=== PATIENT | female | born 1990 | race Caucasian/White ===

== ENCOUNTER 2020-02-20 17:11 | Emergency (ER) | payer OTHER, SELFPAY ==
--- NOTE | 2020-02-20 17:46 | ED_ITS ---
HPI - General Adult General: Chief complaint: General Medical Stated complaint: needle stick Time Seen by Provider: 02/20/20 17:41 History of Present Illness: HPI narrative: Evelyn is a 29-year-old female who comes in with a complaint of needlestick injury to the left index finger. 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 She denies any other complaints. Associated symptoms: Deny chest pain, dyspnea, headache(s), nausea, rash, palpitations, syncope or vomiting Review of Systems Const: Denies: fever(s) Eyes: Denies: change in vision ENMT: Denies: throat pain Card: Denies: chest pain, palpitations, syncope, pre-syncope or dyspnea on exertion Resp: Denies: dyspnea, productive cough or non-productive cough GI: Denies: abdominal pain, nausea, vomiting or diarrhea : Denies: flank pain, dysuria, urinary frequency or urinary urgency Musc: Denies: neck pain, back pain or extremity pain Skin/Breast: Denies: rash or pruritus Neuro: Denies: headache(s), numbness in extremities, weakness in extremities or dizziness Saulo/Lymph: Denies: easy bruising or easy bleeding All/Imm: Denies: urticaria PFSH ED PFSH: Medical History Chronic migraine without aura Endometriosis determined by laparoscopy Pelvic pain Surgical History H/O section 2008, 2012, 2013,2016 H/O dilation and curettage (~2012) Blighted ovum H/O laparoscopy (05/2019) endometriosis and adhesion noted at time of surgery--[place] H/O tubal ligation (~2016) [place] History of cholecystectomy (~03/2017) [place]-- gallstones noted Family History Grandmother Cancer Paternal Grandmother-uterine cancer Maternal Grandmother-breast cancer, lung cancer Denies family history of Diabetes Hyperlipidemia Hypertension Social History Smoking and tobacco status: never smoked Alcohol intake: current Alcohol intake frequency: holidays/special occasions only Alcohol type: beer, wine and hard liquor Physical Exam Const: COMMON NORMALS: no acute distress, patient oriented x3, no limitations, healthy appearing and well nourished GENERAL APPEARANCE: cooperative, well kempt and well developed HENMT: COMMON NORMALS: normocephalic, atraumatic, external ears normal, EAC's normal and Normal external nose present HEAD & SCALP: normal to inspection, normocephalic and atraumatic FACE & SINUS: normal facial exam and face symmetric NOSE: Normal external nose present and Normal nares present EXTERNAL EAR: Yes external ears normal EXTERNAL AUDITORY CANAL: EAC's normal MOUTH: Normal oral and palatal mucosa present, lip normal and tongue normal Eye: COMMON NORMALS: Equal, round and reactive pupils present and conjunctivae normal GENERAL EYE: appearance normal, both eyes and all related structures ALIGNMENT: Yes alignment normal PERIORBITAL: periorbital findings normal EYELID: eyelids normal CONJUNCTIVA: Yes conjunctivae normal SCLERA: sclerae normal PUPIL: Yes Equal, round and reactive pupils present Neck/C-Spine: COMMON NORMALS: full ROM, no lymphadenopathy, supple, no meningeal signs and no JVD GENERAL: Yes normal visual inspection and Yes trachea midline Chest: COMMONS NORMALS: normal inspection of the chest and normal palpation of entire chest wall Resp: COMMON NORMALS: normal respiratory effort, No retractions and No use of accessory muscles EFFORT & INSPECTION: Yes able to speak in complete sentences and Yes symmetric chest movement AUSCULTATION: no crackles, no rales, no rhonchi and no wheezes Cardio: COMMON NORMALS: no JVD, regular rate, regular rhythm, S1 normal heart sound present and S2 normal heart sound present RATE: regular rate RHYTHM: regular rhythm HEART SOUNDS: S1 normal heart sound present, S2 normal heart sound present, no click, no gallops, no murmurs, no rubs and abnormal split S2 GI: COMMON NORMALS: Soft to palpation and No hepatosplenomegaly present PALPATION: Yes Soft to palpation, No Tenderness to palpation present (GI), No Guarding due to palpation present (GI), No Rigid due to palpation, Yes No hepatosplenomegaly present, No Hernia present, No Palpable mass present and No Pulsatile mass present : COMMON NORMALS: Yes no CVA tenderness BLADDER/KIDNEY EXAM: Yes no CVA tenderness EXTERNAL FEMALE EXAM: No Hernia present Back/Pelvis: COMMON NORMALS: no CVA tenderness, thoracic and lumbar spine normal to inspection, no thoracic nor lumbar tenderness and thoraco-lumbar ROM normal Extremity: COMMON NORMALS: normal to inspection, full ROM, capillary refill normal, no joint enlargement, no clubbing, cyanosis or edema and no calf tenderness Neuro: COMMON NORMALS: patient oriented x3, CN's II-XII intact bilaterally, moves all extremities, no focal motor deficits and no sensory deficits noted MENINGEAL SIGNS: Yes no meningeal signs SPEECH: speech normal Psych: COMMON NORMALS: mental status grossly normal, Normal thought process present, cooperative, normal affect, speech normal and activity/motor behavior normal APPEARANCE: Yes well kempt SPEECH: Yes normal speech THOUGHT PROCESS: Normal thought process present Skin: COMMON NORMALS: no rashes or lesions noted, turgor normal, no jaundice, no petechiae and no mottling NARRATIVE SKIN EXAM: Small single puncture wound to the lower aspect of the left index finger. GENERAL SKIN EXAM: no rashes or lesions noted and turgor normal MDM - General Adult MDM Narrative: Medical decision making narrative: Patient medially cleaned and cleansed the area. The patient agreed to have his hepatitis and HIV panels drawn for source sampling. Evelyn Melvin the patient also agrees to this. We will follow-up on the labs will become available. Discharge Plan Discharge Patient Disposition: Home, Self-Care Clinical Impression: Needlestick injury accident Condition: Stable Prescriptions: No Action Mirena 20 mcg/24 hours (5 yrs) 52 mg intrauterine device INTRAUTERI RF: 0 ibuprofen 800 mg tablet 800 mg PO Q8H Qty: 90 RF: 3 Discharge Orders: Discharge Order (Routine); Ordered 02/20/20 Ordered By: Consuelo Fermin Referrals: Latoya Cancino MD [Primary Care Provider] - 1-3 days Discharge Diet: Usual diet Discharge Activity: Resume usual activity Patient Instructions: Blood/Body Fluid Exposure - Occupational, Postexposure Prophylaxis (ED) Activity Restrictions/Additional Instructions: Please return to the ER immediately for any of the signs or symptoms listed on your discharge instruction sheets, worsening/changing of your symptoms, you are not getting better as quickly as expected, or for ANY other cause or concerns. If you change your mind about wanting postexposure prophylaxis please return to the ER anytime for recheck and further evaluation and treatment. Coding Level of Care Code ED Calender Let Off Operator for Chg Fwd Exam Comprehensive
[2020-02-20 17:49] VITALS: BMI 35.4
[2020-02-20 17:58] VITALS: BP 124/84; PULSE 81; RESP 18; TEMP 36.7; O2SAT 98
[2020-02-20 19:02] LABS: Basophils # 0.1 10^3/uL (0.0-0.1); Basophils % 0.8 %; Eosinophils # 0.3 10^3/uL (0.0-0.8); Eosinophils % 2.7 %; Hematocrit 38.9 % (37.0-47.0); Lymphocytes # 3.7 10^3/uL (0.8-4.8); Lymphocytes % 33.1 %; Mean Corpuscular HGB Conc 30.8 g/dL (30.0-36.0); Mean Corpuscular Hemoglobin 24.8 pg (28.0-34.0); Mean Corpuscular Volume 80.5 fL (81-99); Mean Platelet Volume 10.8 fL (7.4-10.4); Monocytes # 0.6 10^3/uL (0.2-0.9); Monocytes % 5.4 %; Neutrophils # 6.42 10^3/uL (1.8-7.7); Neutrophils % 57.7 %; Nucleated Red Blood Cells % 0 %; Platelet Count 385 10^3/cmm (130-400); Red Blood Count 4.83 10^6/uL (4.1-5.3); Red Cell Distribution Width 14.4 % (12.1-15.1); White Blood Count 11.1 10^3/uL (4.0-10.0)
[2020-02-20 19:18] LABS: Alanine Aminotransferase 21 U/L (0-33); Alkaline Phosphatase 84 IU/L (35-105); Anion Gap 15.6 (5-19); Aspartate Amino Transferase 21 U/L (0-32); Blood Urea Nitrogen 16 mg/dL (6-20); Calcium 9.8 mg/dL (8.5-10.5); Carbon Dioxide 26 mmol/L (22-29); Chloride 99 mmol/L (98-107); Globulin 2.8 g/dL (1.3-4.6); Glomerular Filtration Rate 98.3 mL/min (90-130); Glucose 92 mg/dL (65-115); Osmolality Calculated 280 mOsm/kg (285-295); Potassium 3.6 mmol/L (3.5-5.1); Sodium 137 mmol/L (136-145); Total Bilirubin 0.2 mg/dL (0.15-1.2); Total Protein 7.8 g/dL (6.6-8.7)
[2020-02-20 19:26] LABS: HCG, Serum Qual Negative (Negative)
[2020-02-20 19:48] LABS: HIV 1 & 2 Antibody Non-Reactive (Non-Reactiv); HIV 1 & 2 Antigen Non-Reactive (Non-Reactiv)
[2020-02-20 19:53] LABS: Hepatitis A Antibody IgM Non-Reactive (Nonreactive); Hepatitis B Core AB, Total Non-Reactive (Nonreactive); Hepatitis B Surface AB 227.4 (0-8.5); Hepatitis B Surface Antigen Non-Reactive (Nonreactive); Hepatitis C Virus Antibody Non-Reactive (Nonreactive)
== END 2020-02-20 18:11 | disposition home or self-care (01) ==
PROVIDERS: Emergency Provider Emergency Medicine; PCP Family Medicine
DX: S61.231A Puncture wound without foreign body of left index finger without damage to nail, initial encounter (principal); W46.0XXA Contact with hypodermic needle, initial encounter; Y92.238 Other place in hospital as the place of occurrence of the external cause; Y99.0 Civilian activity done for income or pay
CPT/HCPCS: 12345; 36415; 80053; 84703; 85025; 86705; 86706; 86709; 86803; 87340; 87806; 99281; 99282

== ENCOUNTER → 2020-11-18 10:01 | Outpatient (BNVA) | payer OTHER, MEDICAID, SELFPAY | PROVIDERS: Visit Provider Obstetrics & Gynecology | DX: N80.9 Endometriosis, unspecified (principal); Z01.812 Encounter for preprocedural laboratory examination | CPT/HCPCS: 87635 ==

== ENCOUNTER 2020-11-20 14:05 | Inpatient (IN) | payer OTHER, SELFPAY ==
[2020-11-18 11:35] VITALS: BMI 37.1
--- NOTE | 2020-11-18 12:02 | P.ANESASSM_ITS ---
Pre-Anesthetic Assessment Pre-Anesthetic Assessment: Height/Weight: Height 1.57 m Weight 92.079 kg Preop Diagnosis: Chronic pelvic pain, adenomyosis, endometriosis Proposed Procedure: Operation Date: 11/20/20 07:00 Proposed Procedures p Total Abdominal Hysterectomy 98662 N10.2 N80.9(Not Applicable) - Pineda Baum MD Was Beta Festus taken within 24 hours: N/A Was Clonidine taken within 24 hours: N/A Social: Social History: No alcohol and No tobacco Exam: Pre-Anes Outpt Exam: alert and oriented x 3 Airway: Submandibular: WNL Cervical ROM: WNL MP: 1 History/ROS: No significant history except as noted Pulmonary: Pulmonary: None reported CV/HEM: CV/HEM: None reported : : None reported Hepatic: Hepatic: None reported GI: GI: None reported Metabolic: Metabolic: None reported Musc/skel: Musc/skel: None reported Neuropsych: Neuropsych: None reported Anesthetic Plan: ASA status: 2 Anesthesia: General Other: Patient needs TIVA and emesis prophylaxis. PFSH Anesthesia PFSH: Medical History Chronic migraine without aura Endometriosis determined by laparoscopy Pelvic pain Surgical History H/O section 2008, 2012, 2013,2016 H/O dilation and curettage (~2012) Blighted ovum H/O laparoscopy (05/2019) endometriosis and adhesion noted at time of surgery--[place] H/O tubal ligation (~2016) [place] History of cholecystectomy (~03/2017) [place]-- gallstones noted Family History Grandmother Cancer Paternal Grandmother-uterine cancer Maternal Grandmother-breast cancer, lung cancer Denies family history of Diabetes Hyperlipidemia Hypertension Social History (Updated 11/18/20 @ 08:41 by Lia Castaneda RN) Smoking and tobacco status: current every day smoker e-cigarettes E-Cigarette Details: vaporizer device and with nicotine E-cig/vape details: 1-2 times every few days Alcohol intake: current Alcohol intake frequency: holidays/special occasions only Alcohol type: beer, wine and hard liquor Female Reproductive History: Date of last menstrual period: 10/20/20 Data Anesthesia CBC & Chem 7: 11/18/20 11:45 Cardiac Studies: No Data to Display
[2020-11-18 12:11] LABS: Basophils # 0.1 10^3/uL (0.0-0.1); Basophils % 0.9 %; Eosinophils # 0.1 10^3/uL (0.0-0.8); Eosinophils % 1.1 %; Hematocrit 38.2 % (37.0-47.0); Hemoglobin 11.8 g/dL (11.5-15.3); Lymphocytes # 2.3 10^3/uL (0.8-4.8); Lymphocytes % 30.3 %; Mean Corpuscular HGB Conc 30.9 g/dL (30.0-36.0); Mean Corpuscular Hemoglobin 25.5 pg (28.0-34.0); Mean Corpuscular Volume 82.5 fL (81-99); Mean Platelet Volume 10.6 fL (7.4-10.4); Monocytes # 0.4 10^3/uL (0.2-0.9); Monocytes % 5.9 %; Neutrophils # 4.57 10^3/uL (1.8-7.7); Neutrophils % 61.5 %; Nucleated Red Blood Cells % 0 %; Platelet Count 355 10^3/cmm (130-400); Red Blood Count 4.63 10^6/uL (4.1-5.3); Red Cell Distribution Width 13.7 % (12.1-15.1); White Blood Count 7.4 10^3/uL (4.0-10.0)
[2020-11-18 12:23] LABS: Alanine Aminotransferase 18 U/L (0-33); Albumin Level 4.2 g/dL (3.5-5.2); Alkaline Phosphatase 78 IU/L (35-105); Aspartate Amino Transferase 14 U/L (0-32); Blood Urea Nitrogen 10 mg/dL (6-20); Calcium 8.8 mg/dL (8.5-10.5); Carbon Dioxide 26 mmol/L (22-29); Chloride 104 mmol/L (98-107); Globulin 2.4 g/dL (1.3-4.6); Glomerular Filtration Rate 97.6 mL/min (90-130); Glucose 100 mg/dL (65-115); Osmolality Calculated 285 mOsm/kg (285-295); Sodium 138 mmol/L (136-145); Total Bilirubin 0.2 mg/dL (0.15-1.2); Total Protein 6.6 g/dL (6.6-8.7)
[2020-11-18 13:00] LABS: Add Urine Microscopic? YES; Bilirubin Urine Neg (Negative); Blood Urine Neg (Negative); Glucose Urine UA Norm (Normal); Ketones Urine Negative (Negative); Leukocyte Esterase Urine Negative (Negative); Nitrate Urine Negative (Negative); Protein Urine Neg (Negative); Specific Gravity, Urine 1.015 (1.005-1.030); Sulfosalicylic Acid Urine Negative (Negative); Urine Appearance Cloudy (CLEAR); Urine Color Yellow (Yellow); Urobilinogen Urine Norm (Negative); pH Urine 9 (5-7)
[2020-11-18 13:10] LABS: Add Urine Culture? No; RBC Urine RARE /hpf (0-2); Squamous Epithelial Cell Urine 0-4 /hpf (0-5); WBC Urine RARE /hpf (0-5)
[2020-11-18 13:13] LABS: Amorphous Sediment Urine 1+ /hpf; Bacteria Urine 2+ /hpf
[2020-11-18 13:29] LABS: OR HCG Qualitative Urine Negative (Negative)
[2020-11-20] VITALS (28 sets, daily range): BP systolic 82–131; BP diastolic 42–87; PULSE 63–84; RESP 17–24; TEMP 36.2–37.1; O2SAT 95–100
--- NOTE | 2020-11-20 10:48 | W.PM.OPSUD ---
Surgery/Procedure H&P Update DATE OF PROCEDURE: November 20, 2020 DATE H&P PERFORMED: 11/18/20 H&P UPDATE INFORMATION: I have reviewed H&P completed within last 30 days, I have examined patient prior to procedure and No changes to prior documentation PREOP DIAGNOSIS: Chronic pelvic pain, adenomyosis, endometriosis PLANNED PROCEDURE: Operation Date: 11/20/20 11:50 Proposed Procedures p Total Abdominal Hysterectomy 54254 N10.2 N80.9(Not Applicable) - Pineda Baum MD
[2020-11-20] MEDS: scopolamine 1.5 Patch 1 PATCH TRANSDERMA (10:49)
[2020-11-20] MEDS: sodium chloride 0.9% 500 ML IV (11:10)
--- NOTE | 2020-11-20 11:19 | P.ANESUD_ITS ---
Pre-Anesthetic Update Pre-Anesthetic Assessment: Date of Surgery/Procedure: 11/20/20 Preop Joceline gnosis: Chronic pelvic pain, adenomyosis, endometriosis Proposed Procedure: Operation Date: 11/20/20 11:50 Proposed Procedures p Total Abdominal Hysterectomy 42991 N10.2 N80.9(Not Applicable) - Pineda Baum MD Any changes to Pre-Anesthetic Assessment?: No Last Intake: Intake Last Liquid Date 11/19/20 Last Liquid Time 21:00 Last Solid Date 11/19/20 Last Solid Time 21:00 Labs Last 48hrs: Laboratory Results - last 48 hr 11/18/20 11/18/20 11/18/20 11:45 11:45 11:45 WBC 7.4 RBC 4.63 Hgb 11.8 Hct 38.2 MCV 82.5 MCH 25.5 L MCHC 30.9 RDW 13.7 Plt Count 355 MPV 10.6 H Neut % (Auto) 61.5 Lymph % (Auto) 30.3 Gordon % (Auto) 5.9 Eos % (Auto) 1.1 Baso % (Auto) 0.9 Neut # (Auto) 4.57 Lymph # (Auto) 2.3 Gordon # (Auto) 0.4 Eos # (Auto) 0.1 Baso # (Auto) 0.1 Nucleated RBC % (a uto) 0 Nucleated RBCs # 0.0 Sodium 138 Potassium 4.0 Chloride 104 Carbon Dioxide 26 Anion Gap 12.0 BUN 10 Creatinine 0.7 GFR Calculation 97.6 Glucose 100 Calculated Osmolal ity 285 Calcium 8.8 Total Bilirubin 0.2 AST 14 ALT 18 Alkaline Phosphata se 78 Total Protein 6.6 Albumin 4.2 Globulin 2.4 Urine Color Urine Appearance Urine pH Ur Specific Gravit y Urine Protein Urine Glucose (UA) Urine Ketones Urine Blood Urine Nitrate Urine Bilirubin Prot Sulfosalicyli c Acd Urine Urobilinogen Ur Leukocyte Alina ase Urine RBC Urine WBC Ur Squamous Epith Cells Amorphous Sediment Urine Bacteria Urine HCG, Qual Blood Type O Positive Rho(D) Type Positive / 4+ Antibody Screen Negative 11/18/20 11/18/20 12:00 12:00 WBC RBC Hgb Hct MCV MCH MCHC RDW Plt Count MPV Neut % (Auto) Lymph % (Auto) Gordon % (Auto) Eos % (Auto) Baso % (Auto) Neut # (Auto) Lymph # (Auto) Gordon # (Auto) Eos # (Auto) Baso # (Auto) Nucleated RBC % (a uto) Nucleated RBCs # Sodium Potassium Chloride Carbon Dioxide Anion Gap BUN Creatinine GFR Calculation Glucose Calculated Osmolal ity Calcium Total Bilirubin AST ALT Alkaline Phosphata se Total Protein Albumin Globulin Urine Color Yellow Urine Appearance Cloudy Urine pH 9 H Ur Specific Gravit y 1.015 Urine Protein Neg Urine Glucose (UA) Norm Urine Ketones Negative Urine Blood Neg Urine Nitrate Negative Urine Bilirubin Neg Prot Sulfosalicyli c Acd Negative Urine Urobilinogen Norm Ur Leukocyte Alina ase Negative Urine RBC Rare Urine WBC Rare Ur Squamous Epith Cells 0-4 H Amorphous Sediment 1+ Urine Bacteria 2+ H Urine HCG, Qual Negative Blood Type Rho(D) Type Antibody Screen Vitals: Temperature 97.1 F L 11/20/20 10:34 Temperature Source Temporal Artery S can 11/20/20 10:34 Pulse Rate 74 11/20/20 10:34 Pulse Rhythm 11/20/20 10:34 Pulse Strength 3+ Normal 11/20/20 10:34 Respiratory Rate 18 11/20/20 10:34 Blood Pressure 131/87 11/20/20 10:34 Blood Pressure [place] n 101 11/20/20 10:34 Pulse Oximetry 96 11/20/20 10:34 Oxygen Delivery Me thod 11/20/20 10:34 Exam: Pre-Anes Outpt Exam: alert, oriented x 3, clear to auscultation bilaterally and regular rate & rhythm Cardiac Studies: No Data to Display
[2020-11-20] MEDS: sodium chloride 0.9% 1,000 ML 30 ML IV (12:10)
[2020-11-20] MEDS: ceFOXitin 2,000 MG in sodium chloride 0.9% (plus) 50 ML 100 MG IV (12:15)
--- NOTE | 2020-11-20 13:21 | PC.NURSE ---
4490 SPOKE WITH PATIENT'S JERROD AND GAVE HIM AN UPDATE.
--- NOTE | 2020-11-20 14:30 | P.OP_ITS ---
Operative Report Date of procedure: November 20, 2020 Pre-op Diagnosis: Chronic pelvic pain, adenomyosis, endometriosis Post-op diagnosis: same Procedure Done: Total abdominal hysterectomy Specimens removed/disposition: Uterus Surgeon: Pineda Baum MD Anesthesia: General Estimated blood loss (mL): 300 IV fluids (mL): 1,400 Urine output (mL): 150 Complications: None Findings: Extensive bladder adhesions, normal size uterus, normal ovaries Condition: stable Disposition: PACU Procedure: The patient was taken to the operating room, and after adequate level of general anesthesia was achieved, the patient was placed in the Trendelenburg position, prepped and draped in the usual sterile fashion. Subsequently, a Pfannenstiel incision was made and the incision was taken down to the fascia. The fascia was opened up sharply. The fascia was extended to the length of the incision using the Santillan scissors. At this time, the rectus muscles were dissected from the fascia superiorly and inferiorly to the symphysis pubis. The midline rectus muscles were opened sharply and extended superiorly and inferiorly. The peritoneum was visualized, grasped, opened sharply, and extended superiorly and inferiorly towards the bladder. The abdominal contents were packed superiorly away from the operative site using the lap packs. At this time, the pelvic organs were noted. The inferior and superior blades were placed in place on the Martin self-retaining retractor. Bowel was packed away from the operative site. The fundus of the uterus was then grasped with a triple-tooth tenaculum and retracted out of the pelvic cavity into the abdominal site. At this point, Gerri clamps were placed in both right and left adnexal regions. Subsequently, using the Enseal device, the round ligaments were grasped, cauterized, and dissected. The bladder flap was then formed and the bladder flap was pushed away down anteriorly over the lower uterine segment, pushed away from the operative site on both the right and left sides. Subsequently, the posterior leaf of the broad ligament was opened sharply and the Enseal instrument was then placed below the level of the ovary in both the right and left side, care being taken not to damage bowel or uterus and the infundibulopelvic ligament was then grasped, cauterized, and again dissected. Further dissection of the broad ligament was carried down posteriorly towards the uterine vessels. The bladder was pushed inferiorly down towards the vagina. Subsequently, the uterine vessels were then grasped again with the Enseal machine, cauterized, and dissected. The cardinal ligaments were further grasped, dissected, and suture ligated, again with the Enseal machine. At that point, the Enseal machine instrument was stopped and straight Zeppelin clamps were used on the cardinal ligaments down towards the uterosacral ligaments. The cardinal ligaments were grasped, dissected with a scalpel and then ligated with transfixion sutures with #1 Vicryl suture down to the uterosacral ligaments. The uterosacral ligaments were grasped, dissected, and suture ligated again with #1 Vicryl suture and transfixion sutures. At that time, the bladder had been pushed over the vagina and at this time right-angle Zeppelin clamps were placed on the vagina at the level of the cervix, and using the Susie scissors, the cervix was dissected away from the vagina. At this time, the vaginal cuff was then closed using interrupted sutures of #1 Vicryl suture from the midline to each lateral corner. After the good hemostasis had been achieved in the vaginal cuff, both the right and left adnexa was visualized and no more bleeding was noted. The cuff was intact with no bleeding noted. The bladder was visualized and no bleeding was noted. Seprafilm was then placed over the vaginal cuff. The Martin self- retaining retractor was removed as well as the anterior and inferior blades. The lap packs were removed, and at this time, general closure of the abdomen was carried out. The peritoneum was closed with a 2-0 Vicryl suture and continuous running suture. The fascia was closed using a #1 Vicryl suture from each corner to the midline. Subcutaneous tissue was cauterized. No bleeding was noted. The subcutaneous tissue was then reapproximated using plain sutures and interrupted sutures, and the skin was closed using The Insorb subcuticular absorbable tangela. The incision site was infiltrated with Exparel for pain management. The patient tolerated the procedure well and was transferred to the recovery room in excellent condition. The patient returned to the floor for recovery.
--- NOTE | 2020-11-20 14:31 | PC.NURSE ---
1427 Spoke with patient's to inform him of completion of surgery. Dr Baum spoke with [place] as well.
[2020-11-20] MEDS: meperidine 50 mg/mL INJ 12.5 MG IVP ×2 (14:48→15:06)
--- NOTE | 2020-11-20 14:54 | ANE.PACU2 ---
Inpatient post-anesthesia follow up: Airway intact: Yes Vital signs: Temperature 97.1 F Pulse Rate 74 Respiratory Rate 18 Blood Pressure 131/87 Pulse Oximetry 95 Oxygen Delivery Me thod Room Air Oxygen Flow Rate Fraction of Inspir ed Oxygen Hydration adequate: Yes Nausea and vomiting: No Pain level: 3 Mental status: Baseline
--- NOTE | 2020-11-20 15:11 | SUR.PHASEI ---
1426 PT TO PACU SHIVERING ORAL AIRWAY IN PLACE PT SX WITH YANKER FOR LOUD RESP LARGE AMT OF CLEAR PINK TINGED SPUTUM OBTAINED PT AWAKES ORAL AIRWAY OUT PT YUMIKO OUT WITH PAIN MOANS RESTLESS SEE PAIN MED GIVEN BY SKIN THERAPIST . VSS ABD LARGE SOFT WITH DRESSIN D/I URIARTE TO DD WITH BLUE URINE NOTED AND STATLOCK TO RT THIGH. BILAT SCS ON . 1448 WARM BLANKETS TO PT X 4 SEE MED GIVEN FOR SHIVERING AND PAIN 1506 UNCHANGED SEE MED REPEATED PT SHIVEIRING AND C/O OF PAIN , BP LOW AT TIMES PT ENCOURAGED NOT TO MOVE WHILE BP IS TAKING AND BP READS MORE NORMAL. IV W/O PER ANESTHESIA REQUEST
[2020-11-20] MEDS: sodium chloride 0.9% 500 ML 999 ML IV (15:23)
--- NOTE | 2020-11-20 16:00 | SUR.PHASEI ---
1530 PT VERY ALERT C/O OF PAIN REPOSITIONS SELF TO RT SIDE, ABD LARGE SOFT DRESSING D/I DAI PAD D/I NO BLEEDING NOTED URIARTE TO DD WITH DK BLUE URINE TO TUBING AND BAG, IV PATENT AT MODERATE RATE, SEE FLUIDS GIVEN FOR OFF AND ON LOW BP EARLIER. PT BP MAINTAINED WELL ABOVE 95 SYSTOLIC, AND PT ALERT AND TALKATIVE . PT STILL RATES PAIN AT 10 BUT PT MORE RELAXED AND SLEEPS OFF AND ON WITH SNORING RESP, HR MAINTAINED AT 65, NOT ELEVATED, PT VERBALIZED (I DONT DO WELL WITH PAIN, AND PAIN MEDS REALLY DROP MY BLOOD PRESSURE.). 1645 HANDOFF AT BEDISDE WITH NURSE ANDRADE, PT REMAINS ALERT BP STABLE PT MOVES SELF TO BED WITH NO ASSISTANCE. DRESSING REMAINS D/I.
[2020-11-20] MEDS: ketorolac 30 mg/mL INJ IVP ×2 (16:05→21:04)
[2020-11-20] MEDS: HYDROcodone-acetaminophen 5-325 mg Tablet PO (16:05)
[2020-11-20] MEDS: morphine 4 mg/mL SDV 1 mL 1 MG IVP (17:37)
[2020-11-20] MEDS: HYDROmorphone 1 mg/mL INJ 1 mL 0.5 MG IVP ×2 (18:13→21:14)
[2020-11-20] MEDS: docusate sodium 100 mg Capsule PO (18:14)
[2020-11-20] MEDS: dextrose 5%-lactated ringers 1,000 ML 125 ML IV (21:26)
[2020-11-21 01:45] VITALS: BP 99/63; PULSE 68; RESP 18; O2SAT 99
[2020-11-21] MEDS: ketorolac 30 mg/mL INJ IVP ×2 (02:11→09:52)
[2020-11-21] MEDS: HYDROcodone-acetaminophen 5-325 mg Tablet PO ×2 (02:11→19:50)
[2020-11-21 06:00] VITALS: BP 99/55; PULSE 60; RESP 18
[2020-11-21 06:18] LABS: Hematocrit 30.4 % (37.0-47.0); Hemoglobin 9.8 g/dL (11.5-15.3); Mean Corpuscular HGB Conc 32.2 g/dL (30.0-36.0); Mean Corpuscular Hemoglobin 26.5 pg (28.0-34.0); Mean Corpuscular Volume 82.2 fL (81-99); Mean Platelet Volume 10.9 fL (7.4-10.4); Platelet Count 307 10^3/cmm (130-400); Red Cell Distribution Width 13.3 % (12.1-15.1); White Blood Count 12.2 10^3/uL (4.0-10.0)
[2020-11-21 07:39] VITALS: RESP 18; O2SAT 97
[2020-11-21] MEDS: HYDROmorphone 1 mg/mL INJ 1 mL 0.5 MG IVP (07:39)
--- NOTE | 2020-11-21 09:36 | P.PN_ITS ---
Subjective Subjective: Interval history: 30-year-old female status post total abdominal hysterectomy postoperative day 1. Refers doing better than yesterday with pain. Eating well Vitals/I&O/Wt Last Vital Signs Temp 98.8 F 11/20/20 15:50 Pulse 60 11/21/20 06:00 Resp 18 11/21/20 07:39 BP 99/55 11/21/20 06:00 Pulse Ox 97 11/21/20 07:39 11/20/20 11/21/20 11/21/20 22:59 06:59 14:59 Intake Total 1180 / 3330 1000 / 4330 Output Total 900 / 1650 2150 / 3800 500 / 500 Balance 280 / 1680 -1150 / 530 -500 / -500 Physical Exam Narrative: EXAM NARRATIVE: GA: Alert and oriented ?3. HEENT: WNL. Heart: Regular rate and rhythm. Lungs: Clear to auscultation bilaterally. Abdomen: Bowel sounds present, nontender, minimal tenderness, incision clean and dry, no redness, pain or edema. 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 Extremities: No edema, no cyanosis, no calves pain. Urinary Catheter Management^: F: Cath Placed During This Visit: yes, but has since been removed by the nurse Reason for Continuing Indwelling Catheter: Decision to DC Catheter Urinary Catheter Date of Insertion: 11/20/20 Urinary Catheter Time of Insertion: 12:25 Date Urinary Catheter Removed: 11/21/20 Time Urinary Catheter Discontinued: 09:00 Data : 11/21/20 05:45 11/18/20 11:45 A&P Assessment and plan (1) Status post hysterectomy: Mrs. Melvin 30-year-old female status post total abdominal hysterectomy postoperative day 1 due to chronic pelvic pain dysmenorrhea and endometriosis. She is afebrile and hemodynamically stable. Tolerating diet well. Ambulating with out difficulty. Pain under control with medication. Encourage patient for ambulation. Anticipate discharge home tomorrow. Status: Acute Attestations Medical Necessity Statement*: In my professional opinion per admitting diagnosis Coding Level of Care Code Acute Rv Technician for Kumar Redman Diagnoses Status post hysterectomy Z90.710
[2020-11-21] MEDS: docusate sodium 100 mg Capsule PO ×2 (09:52→17:33)
[2020-11-21 10:06] VITALS: BP 91/54; PULSE 60; RESP 16; TEMP 37.2; O2SAT 98
[2020-11-21] MEDS: simethicone 80 mg Chew PO (11:27)
[2020-11-21] MEDS: ibuprofen 800 mg tablet PO ×2 (17:32→22:06)
[2020-11-21 17:37] VITALS: BP 99/65; PULSE 70; RESP 16; TEMP 37.1; O2SAT 99
[2020-11-21 22:08] VITALS: BP 93/62; PULSE 77; RESP 18; TEMP 37.1; O2SAT 97
[2020-11-22 04:00] VITALS: BP 93/64; PULSE 62; RESP 16; TEMP 36.8; O2SAT 99
[2020-11-22] MEDS: ibuprofen 800 mg tablet PO ×2 (05:48→14:05)
[2020-11-22] MEDS: HYDROcodone-acetaminophen 5-325 mg Tablet PO (07:43)
[2020-11-22] MEDS: ondansetron 4 MG Tablet PO (10:03)
[2020-11-22] MEDS: docusate sodium 100 mg Capsule PO (10:04)
[2020-11-22 10:11] VITALS: BP 117/71; PULSE 72; RESP 16; TEMP 36.6; O2SAT 99
--- NOTE | 2020-11-22 12:46 | PC.RESP ---
Smoking Cessation information sent to patient
[2020-11-22 16:05] VITALS: BP 105/69; PULSE 59; RESP 15; TEMP 36.6
--- NOTE | 2020-11-22 17:17 | P.DS_ITS ---
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 Melvin female 30-year-old history of chronic pelvic pain dysmenorrhea and endometriosis diagnosed by laparoscopy unresponsive to medical management was admitted for planned total abdominal hysterectomy due to previous 4 deliveries. The procedure was performed without complication. Initial postop recovery significant for postop pain which was controlled with pain medication. Patient ambulating without difficulty, urine output adequate. Tolerating diet well. She is afebrile and hemodynamically stable. Tolerating pain with medication now. Physical Exam Narrative: EXAM NARRATIVE: GA: Alert and oriented ?3. HEENT: WNL. Heart: Regular rate and rhythm. Lungs: Clear to auscultation bilaterally. Abdomen: Bowel sounds present, minimal tenderness, incision clean and dry, no redness, pain or edema. STNA: No bleeding. Extremities: No edema, no cyanosis, no calves pain. Urinary Catheter Management^: F: Cath Placed During This Visit: yes, but has since been removed by the nurse Reason for Continuing Indwelling Catheter: Decision to DC Catheter Urinary Catheter Date of Insertion: 11/20/20 Urinary Catheter Time of Insertion: 12:25 Date Urinary Catheter Removed: 11/21/20 Time Urinary Catheter Discontinued: 09:00 Discharge Data Data Completed and Pending: Pending at discharge Category Date Time Status Pathology: Surgic al [PTH] Routine Pth 11/20/20 13:51 Received Vitals: Last Vital Signs Temp 97.9 F 11/22/20 10:11 Pulse 72 11/22/20 10:11 Resp 16 11/22/20 10:11 BP 117/71 11/22/20 10:11 Pulse Ox 99 11/22/20 10:11 Discharge Plan Discharge Patient Disposition: Home Condition: Stable Prescriptions: New hydrocodone-acetaminophen 5-325 mg tablet 1 tab PO Q4H PRN (Reason: pain) Qty: 30 RF: 0 ferrous sulfate [Iron (ferrous sulfate)] 325 mg (65 mg iron) tablet 325 mg PO BID Qty: 60 RF: 0 acetaminophen 325 mg capsule 325 mg PO Q4H PRN (Reason: fever or pain) Qty: 60 RF: 0 docusate sodium [Colace] 100 mg capsule 100 mg PO BID Qty: 60 RF: 0 Continued ibuprofen 800 mg tablet 800 mg PO Q8H PRN (Reason: Pain) RF: 0 Discharge Orders: Discharge Order (Routine); Ordered 11/22/20 Ordered By: Pineda Baum Referrals: Pineda Baum MD [Physician] - 12/06/20 10:45 am (* Your incision check is on 12/06/20 at 10:45am * Your 6 week follow up appointment is 12/31/20 at 8:00am) Discharge Diet: Usual diet Discharge Activity: Increase activity as tolerated Patient Instructions: Abdominal Hysterectomy (DC), OB Abdominal Surgery - [facility], OB Discharge Report, OB Food/Drug Interaction Guide, Opioid Safety Activity Restrictions/Additional Instructions: 1. Please call [facility] on next working day to make your post-operative appointment in 2 weeks. 2. Please stay home until you come back to the clinic on first post-operative check up. 3. Please follow instructions on your medications CAREFULLY. 4. If you have abdominal incision, do not cover it unless dressing is necessary because of drainage. OK to shower, but avoid bath. Leave steri-strips until they fall off. If they are still on one week after surgery, you may remove them. 5. If you had vaginal surgery or vaginal repair, Dr. Baum may instruct you to take SITZ bath. 6. Yellow, blood tinged odorous vaginal discharge is usually normal after hysterectomy or vaginal surgeries. 7. No sexual intercourse, tampons, or douches until you are completely released from the post-operative care. 8. Avoid constipation by eating right and maybe using some Metamucil or Milk of Magnesia. 9. All prescription refills are given during the working hours. Please do no wait till it runs out. Call the clinic at [phone] before your medication runs out. The clinic will get in touch with your doctor to prescribe medications if necessary. 10. Please remain within 40 mile radius from our hospital because emergencies do happen now and then during the post-operative period. 11. If you have stairs at home, take one step at a time slowly and minimize the number of trips. It helps to stay in one floor for the next few days. No lifting except what you can lift by one hand until you are released from the post-operative care. 12. Driving is discouraged until you are well healed. It may be 3-4 weeks before you feel strong enough to drive. You should be able to turn and look through the rear window without pain and you should be able to push the brake pedal very hard without pain before you drive. No fast rules, but SAFETY should be your primary concern. DO NOT drive if you are on sedating medications such as narcotics. 13. Call the clinic (during working hours) to make urgent appointment or go to the Emergency room, if any of the following occurs: i. Vaginal bleeding becomes heavy, more than a period. ii. Incision becomes red and sore, or drains pus. iii. Your temperature is over 100.4 or you have chill. iv. IV site becomes red and swollen (a little ``knot?? is usually OK) v. Persistent nausea and vomiting vi. Persistent constipation or diarrhea vii. Rash or allergic reaction to medications. Discharge Attestations WRAPPING MACHINE HELPER Time Spent in Discharge Care*: greater than 30 min Coding Level of Care Code Acute Workforce Manager for Kumar Redman Diagnoses Status post hysterectomy Z90.710 Dysmenorrhea N94.6 Endometriosis determined by laparoscopy N80.9 Pelvic pain R10.2
[2020-11-22 17:52] VITALS: BP 110/71; PULSE 59; RESP 16; TEMP 36.6; O2SAT 100
== END 2020-11-22 18:10 | disposition home or self-care (01) | DRG 743 ==
LOC: OBGYN 15:00
PROVIDERS: Admitting Provider Obstetrics & Gynecology; Visit Provider Obstetrics & Gynecology
PROC: 0UT90ZZ Resection of Uterus, Open Approach (ICD-10-PCS; CPT 58150; principal; 2020-11-20 11:50)
DX: N80.0 Endometriosis of uterus (principal); G89.29 Other chronic pain; R10.2 Pelvic and perineal pain; G43.709 Chronic migraine without aura, not intractable, without status migrainosus; F17.290 Nicotine dependence, other tobacco product, uncomplicated
CPT/HCPCS: 36415; 80053; 81001; 84703; 85025; 85027; 86850; 86900; 88307; 96365; C9290; J0694; J1100; J1170; J1885; J2175; J2270; J2405; J2704; J2710; J3010; J3490; J7030; J7040; Q0162

== ENCOUNTER 2020-11-30 09:45 | Emergency (ER) | payer OTHER, SELFPAY ==
[2020-11-30 09:52] VITALS: BP 107/77; PULSE 73; RESP 16; TEMP 36.2; O2SAT 98; BMI 36.6
--- NOTE | 2020-11-30 10:00 | USR_ITS ---
PROCEDURE INFORMATION: Exam: US Abdomen, Limited; Soft Tissue Exam date and time: 11/30/2020 10:01 AM Age: 30 years old Clinical indication: Other: Fluild leak from site; Prior surgery; Surgery date: 3-7 days post-operative; Additional info: US incision for abscess/seroma TECHNIQUE: Imaging protocol: US abdomen. Real time ultrasound with image documentation. Limited exam focused on the soft tissues. COMPARISON: No relevant prior studies available. FINDINGS: Soft tissues: Ultrasound imaging of the anterior pelvic wall incision shows no significant abnormality. There are no fluid collections. There is no evidence of seroma or abscess. US/US abdomen limited [id number] IMPRESSION: No abnormal fluid collections with no evidence of abscess or seroma.
[2020-11-30 10:04] VITALS: O2SAT 99
--- NOTE | 2020-11-30 10:06 | ED_ITS ---
HPI - Recheck/Abnormal Lab/Rx General: Chief Complaint: Recheck/Abnormal Lab/Rx Stated Complaint: POSS INFECTION, POST SURGERY Time Seen by Provider: 11/30/20 09:47 History of Present Illness: HPI narrative: 30-year-old female presents to the emergency room she is 10 days postop from a total abdominal hysterectomy. she has begun to notice some drainage from the wound she denies dysuria urgency or frequency she has not had any fever sweats or chills. No vomiting. Symptoms began last 24 hours. She has been changing the dressing couple of times a day with a little bit of serous drainage on the wound no purulent drainage no active bleeding. MD complaint: wound re-check Symptoms since prior visit: worsening discharge Treatments prior to arrival: dressings Review of Systems Const: Denies: fever(s), chills, body aches, change in appetite, fatigue or malaise ENMT: Denies: throat pain, ear or mastoid pain, nasal discharge or nasal congestion Card: Denies: chest pain, edema, dyspnea on exertion or orthopnea Resp: Denies: dyspnea, productive cough or non-productive cough GI: Denies: abdominal pain, nausea, vomiting, hematemesis, coffee ground emesis, diarrhea, constipation, bloating, hematochezia or melena : Denies: flank pain, difficulty voiding, dysuria, urinary frequency or urinary urgency Skin/Breast: Denies: rash or pruritus PFSH ED PFSH: Medical History Chronic migraine without aura Endometriosis determined by laparoscopy Pelvic pain Surgical History H/O section 2008, 2012, 2013,2016 H/O dilation and curettage (~2012) Blighted ovum H/O laparoscopy (05/2019) endometriosis and adhesion noted at time of surgery--[place] H/O tubal ligation (~2016) [place] History of cholecystectomy (~03/2017) [place]-- gallstones noted Family History Grandmother Cancer Paternal Grandmother-uterine cancer Maternal Grandmother-breast cancer, lung cancer Denies family history of Diabetes Hyperlipidemia Hypertension Social History Smoking and tobacco status: current every day smoker e-cigarettes E-Cigarette Details: vaporizer device and with nicotine E-cig/vape details: 1-2 times every few days Alcohol intake: current Alcohol intake frequency: holidays/special occasions only Alcohol type: beer, wine and hard liquor Female Reproductive History: Date of last menstrual period: 10/20/20 Physical Exam Const: COMMON NORMALS: no acute distress GENERAL APPEARANCE: cooperative and comfortable ORIENTATION/CONSCIOUSNESS: Yes awake, Yes oriented to person, Yes oriented to place and Yes oriented to time HENMT: COMMON NORMALS: normocephalic, atraumatic, hearing grossly normal bilaterally, external ears normal, EAC's normal, TM's normal bilaterally, Normal nasal mucous membranes and turbinates present, moist oral mucous membranes and oropharynx normal HEAD & SCALP: normocephalic and atraumatic NOSE: Normal nasal mucous membranes and turbinates present EXTERNAL EAR: Yes external ears normal EXTERNAL AUDITORY CANAL: EAC's normal TYMPANIC MEMBRANE: TM's normal bilaterally Neck/C-Spine: COMMON NORMALS: no JVD Resp: COMMON NORMALS: normal respiratory effort, No retractions, No use of accessory muscles and clear to auscultation bilaterally AUSCULTATION: clear to auscultation bilaterally Cardio: COMMON NORMALS: no JVD, regular rate, regular rhythm and No murmurs present (Cardio) RATE: regular rate RHYTHM: regular rhythm GI: COMMON NORMALS: Soft to palpation and No hepatosplenomegaly present AUSCULTATION: Yes normoactive bowel sounds PALPATION: Yes Soft to palpation, No Tenderness to palpation present (GI), No Guarding due to palpation present (GI) and Yes No hepatosplenomegaly present OTHER: Mild wound dehiscence of the superficial skin there is some serous drainage most prominent at the right lateral portion of the incision the small area on the left side no purulent drainage no induration. Extremity: COMMON NORMALS: normal to inspection, capillary refill normal, no clubbing, cyanosis or edema, no calf tenderness and no pedal edema Neuro: SENSORIUM/ORIENTATION: Yes oriented to person, Yes oriented to place and Yes oriented to time Skin: COMMON NORMALS: no rashes or lesions noted GENERAL SKIN EXAM: no rashes or lesions noted Course Vital Signs: Vital signs: Vital Signs Temperature 97.2 F L 11/30/20 09:52 Pulse Rate 73 11/30/20 11:28 Respiratory Rate 16 11/30/20 11:28 Blood Pressure 100/65 11/30/20 11:28 Pulse Oximetry 96 11/30/20 11:28 MDM - Recheck/Abnormal Lab/Rx MDM Narrative: Medical decision making narrative: Local bacitracin dressings monitor closely imaging did not show significant seroma follow-up with surgeon as planned return if has problems Lab Data: Labs: Lab Results 11/30/20 11/30/20 11/30/20 Range/Units 10:13 10:13 10:25 WBC 7.4 (4.0-10.0) 10^3/ uL RBC 4.18 (4.1-5.3) 10^6/u L Hgb 10.8 L (11.5-15.3) g/dL Hct 34.7 L (37.0-47.0) % MCV 83.0 (81-99) fL MCH 25.8 L (28.0-34.0) pg MCHC 31.1 (30.0-36.0) g/dL RDW 13.5 (12.1-15.1) % Plt Count 370 (130-400) 10^3/c mm MPV 9.9 (7.4-10.4) fL Neut % (Auto) 51.9 % Lymph % (Auto) 34.9 % [place] % (Auto) 5.3 % Eos % (Auto) 6.8 % Baso % (Auto) 0.8 % Neut # (Auto) 3.84 (1.8-7.7) 10^3/u L Lymph # (Auto) 2.6 (0.8-4.8) 10^3/u L [place] # (Auto) 0.4 (0.2-0.9) 10^3/u L Eos # (Auto) 0.5 (0.0-0.8) 10^3/u L Baso # (Auto) 0.1 (0.0-0.1) 10^3/u L Nucleated RBC % (a uto) 0 % Nucleated RBCs # 0.0 /100WBC Sodium 139 (136-145) mmol/L Potassium 3.6 (3.5-5.1) mmol/L Chloride 102 (98-107) mmol/L Carbon Dioxide 28 (22-29) mmol/L Anion Gap 12.6 (5-19) BUN 11 (6-20) mg/dL Creatinine 0.5 (0.5-0.9) mg/dL GFR Calculation 143.9 H (90-130) mL/min Glucose 89 (65-115) mg/dL Calculated Osmolal ity 287 (285-295) mOsm/k g Calcium 8.5 (8.5-10.5) mg/dL Total Bilirubin 0.3 (0.15-1.2) mg/dL AST 14 (0-32) U/L ALT 20 (0-33) U/L Alkaline Phosphata se 73 (35-105) IU/L Total Protein 6.6 (6.6-8.7) g/dL Albumin 4.0 (3.5-5.2) g/dL Globulin 2.6 (1.3-4.6) g/dL Urine Color Yellow (Yellow) Urine Appearance Clear (CLEAR) Urine pH 5 (5-7) Ur Specific Gravit y 1.025 (1.005-1.030) Urine Protein Neg (Negative) Urine Glucose (UA) Norm (Normal) Urine Ketones Negative (Negative) Urine Blood 2+ H (Negative) Urine Nitrate Negative (Negative) Urine Bilirubin Neg (Negative) Urine Urobilinogen Norm (Negative) mg/dL Ur Leukocyte Laina ase Negative (Negative) Urine RBC 0-4 H (0-2) /hpf Urine WBC 0-4 H (0-5) /hpf Ur Squamous Epith Cells 5-10 H (0-5) /hpf Amorphous Sediment Not Reportable Urine Bacteria Trace (NONE) /hpf Urine Mucus Trace /hpf Discharge Plan Discharge Patient Disposition: Home Clinical Impression: Postoperative wound dehiscence, Status post hysterectomy Condition: Stable Prescriptions: New mupirocin 2 % ointment 1 applic topical BID Qty: 22 RF: 0 No Action ibuprofen 800 mg tablet 800 mg PO Q8H PRN (Reason: Pain) RF: 0 acetaminophen 325 mg capsule 325 mg PO Q4H PRN (Reason: fever or pain) Qty: 60 RF: 0 hydrocodone-acetaminophen 5-325 mg tablet 1 tab PO Q4H PRN (Reason: pain) Qty: 30 RF: 0 Iron (ferrous sulfate) 325 mg (65 mg iron) tablet 325 mg PO BID Qty: 60 RF: 0 Colace 100 mg capsule 100 mg PO BID Qty: 60 RF: 0 Discharge Orders: Discharge ED (Routine); Ordered 11/30/20 Ordered By: Dereck Ryan Patient Instructions: Opioid Safety Activity Restrictions/Additional Instructions: Change dressing twice daily apply topical antibiotic ointment. Follow-up with your surgeon this coming week. Coding Level of Care Code ED Molecular Spectroscopist for Kumar Redman
[2020-11-30 10:20] LABS: Basophils # 0.1 10^3/uL (0.0-0.1); Basophils % 0.8 %; Eosinophils # 0.5 10^3/uL (0.0-0.8); Eosinophils % 6.8 %; Hematocrit 34.7 % (37.0-47.0); Hemoglobin 10.8 g/dL (11.5-15.3); Lymphocytes # 2.6 10^3/uL (0.8-4.8); Lymphocytes % 34.9 %; Mean Corpuscular HGB Conc 31.1 g/dL (30.0-36.0); Mean Corpuscular Hemoglobin 25.8 pg (28.0-34.0); Mean Platelet Volume 9.9 fL (7.4-10.4); Monocytes # 0.4 10^3/uL (0.2-0.9); Monocytes % 5.3 %; Neutrophils # 3.84 10^3/uL (1.8-7.7); Neutrophils % 51.9 %; Nucleated Red Blood Cells % 0 %; Platelet Count 370 10^3/cmm (130-400); Red Blood Count 4.18 10^6/uL (4.1-5.3); Red Cell Distribution Width 13.5 % (12.1-15.1); White Blood Count 7.4 10^3/uL (4.0-10.0)
[2020-11-30 10:49] LABS: Alanine Aminotransferase 20 U/L (0-33); Alkaline Phosphatase 73 IU/L (35-105); Anion Gap 12.6 (5-19); Aspartate Amino Transferase 14 U/L (0-32); Blood Urea Nitrogen 11 mg/dL (6-20); Calcium 8.5 mg/dL (8.5-10.5); Carbon Dioxide 28 mmol/L (22-29); Chloride 102 mmol/L (98-107); Globulin 2.6 g/dL (1.3-4.6); Glomerular Filtration Rate 143.9 mL/min (90-130); Glucose 89 mg/dL (65-115); Osmolality Calculated 287 mOsm/kg (285-295); Potassium 3.6 mmol/L (3.5-5.1); Sodium 139 mmol/L (136-145); Total Bilirubin 0.3 mg/dL (0.15-1.2); Total Protein 6.6 g/dL (6.6-8.7)
[2020-11-30 11:06] LABS: Specific Gravity, Urine 1.025 (1.005-1.030); Urine Appearance Clear (CLEAR); Urine Color Yellow (Yellow); pH Urine 5 (5-7)
[2020-11-30 11:07] LABS: Add Urine Culture? No; Add Urine Microscopic? YES; Bacteria Urine TRACE /hpf; Bilirubin Urine Neg (Negative); Blood Urine 2+ (Negative); Glucose Urine UA Norm (Normal); Ketones Urine Negative (Negative); Leukocyte Esterase Urine Negative (Negative); Mucus Urine TRACE /hpf; Nitrate Urine Negative (Negative); Protein Urine Neg (Negative); RBC Urine 0-4 /hpf (0-2); Urobilinogen Urine Norm (Negative); WBC Urine 0-4 /hpf (0-5)
[2020-11-30 11:28] VITALS: BP 100/65; PULSE 73; RESP 16; O2SAT 96
== END 2020-11-30 11:30 | disposition home or self-care (01) ==
PROVIDERS: Emergency Provider Family Medicine
DX: T81.31XA Disruption of external operation (surgical) wound, not elsewhere classified, initial encounter (principal); Z90.710 Acquired absence of both cervix and uterus; F17.290 Nicotine dependence, other tobacco product, uncomplicated
CPT/HCPCS: 76705; 80053; 81001; 85025; 87040; 99283